=== PATIENT | male | born 1945 | race Caucasian/White ===

== ENCOUNTER 2016-10-08 13:19 | Inpatient (IN) | payer MEDICARE, OTHER ==
[~2016-10-08] VITALS: Ht 182.9 cm; Wt 115.2 kg
[2016-10-08 13:33] VITALS: BP 131/85; PULSE 75; TEMP 98
[2016-10-08] MEDS ORDERED: GLUCOPHAGE1000 MG PO (13:55)
[2016-10-08] MEDS ORDERED: DIFLUCAN200 MG PO (13:57)
[2016-10-08] MEDS ORDERED: GLUCOTROL 5M5 MG/TAB PO (13:57)
[2016-10-08 15:16] LABS: BASO % 0.2 % (0.0-2.0); EOS % 0.2 % (0-4.0); GRAN # 3.2 (1.4-6.5); GRAN % 68.2 % (42.2-75.2); HEMATOCRIT 40.6 % (42.0-52.0); HEMOGLOBIN 13.7 g/dl (13.5-18.0); LYMPH # 1.1 (1.2-3.4); LYMPH % 23.7 % (20.0-51.0); MEAN CELL VOLUME 84 fl (80.0-100.0); MEAN CORPUSCULAR HEMOGLOBIN 28 pg (27.0-31.0); MEAN CORPUSCULAR HGB CONC 34 g/dl (33.0-37.0); MEAN PLATELET VOLUME 9.4 fl (7.4-10.4); MONO # 0.3 (0.1-0.6); MONO % 7.1 % (1.7-9.3); PLATELET COUNT 119 K/mm3 (130-400); RED BLOOD COUNT 4.83 M/mm3 (4.20-5.60); REDCELL DISTRIBUTION WIDTH-CV 14.6 % (11.5-14.5); WHITE BLOOD COUNT 4.7 K/mm3 (4.8-10.8)
[2016-10-08 15:19] LABS: INR 1.2 (0.8-3.0); PROTHROMBIN TIME 12.8 SECONDS (9.7-12.8)
[2016-10-08 15:20] LABS: ADJUSTED CALCIUM 9.8 mg/dL (8.4-10.2); ALBUMIN 3.3 gm/dL (3.5-5.0); BILIRUBIN,TOTAL 1.3 mg/dL (0.0-1.0); CALCIUM 9.2 mg/dL (8.4-10.2); CREATININE, serum 0.73 mg/dL (0.66-1.25); MAGNESIUM 1.9 mg/dL (1.6-2.3); PHOSPHOROUS 3.6 mg/dL (2.5-4.5); POTASSIUM 4.7 mmol/L (3.4-5.0); TOTAL PROTEIN 6.4 gm/dL (6.4-8.2)
[2016-10-08 18:06] VITALS: BP 118/65; PULSE 61; TEMP 97.8
[2016-10-08 22:54] VITALS: BP 106/54; PULSE 118; TEMP 98.3
[2016-10-09 02:35] VITALS: BP 118/70; PULSE 84; TEMP 98
[2016-10-09 06:38] VITALS: BP 115/61; PULSE 56; TEMP 98.1
[2016-10-09 09:30] VITALS: BP 115/52; PULSE 62; TEMP 98.3
[2016-10-09 16:09] VITALS: BP 106/49; PULSE 61; TEMP 99.1
[2016-10-09 20:27] VITALS: BP 108/55; PULSE 62; TEMP 98.3
[2016-10-10 05:51] VITALS: BP 111/61; PULSE 64; TEMP 97.8
[2016-10-10 10:00] VITALS: BP 104/62; PULSE 68; TEMP 98.1
[2016-10-10 15:17] VITALS: BP 114/61; PULSE 69; TEMP 97.4
[2016-10-10 18:19] VITALS: BP 111/62; PULSE 63; TEMP 98
[2016-10-10 22:49] VITALS: BP 126/60; PULSE 60; TEMP 98.4
[2016-10-11 06:51] VITALS: BP 100/55; PULSE 73; TEMP 98.5
[2016-10-11 09:28] VITALS: BP 112/67; PULSE 57; TEMP 97.4
[2016-10-11 13:38] VITALS: BP 111/59; PULSE 63; TEMP 97.8
[2016-10-11 17:55] VITALS: BP 123/75; PULSE 62; TEMP 98.5
[2016-10-11 22:28] VITALS: BP 107/50; PULSE 61; TEMP 98.5
[2016-10-12 02:05] VITALS: BP 110/58; PULSE 70
[2016-10-12 04:49] VITALS: BP 117/63; PULSE 61; TEMP 98.1
[2016-10-12 10:07] VITALS: BP 114/65; PULSE 65; TEMP 98.6
[2016-10-12 22:12] VITALS: BP 110/65; PULSE 74; TEMP 98.5
[2016-10-13 01:49] VITALS: BP 109/48; PULSE 62; TEMP 98.2
[2016-10-13 05:48] VITALS: BP 121/64; PULSE 74; TEMP 98.5
[2016-10-13 07:48] VITALS: BP 125/63; PULSE 50; TEMP 97.1
[2016-10-13 13:37] VITALS: BP 104/57; PULSE 55; TEMP 97.8
[2016-10-13 17:45] VITALS: BP 92/64; PULSE 53; TEMP 98
[2016-10-13 17:57] VITALS: BP 92/64; PULSE 50; TEMP 98
[2016-10-13 22:12] LABS: CARCINOEMBRYONIC ANTIGEN 0.9 ng/mL (0.0-5.0)
[2017-01-20] MEDS ORDERED: NEURONTIN600 MG/TAB PO (11:09)
[2017-01-20] MEDS ORDERED: FUSILEV50 MG IV (11:11)
[2017-01-20] MEDS ORDERED: [UNRECOGNIZED DRUG - OTHER] PO (11:12)
[2017-01-20] MEDS ORDERED: OXALIPLATIN IV (11:12)
[2017-01-20] MEDS ORDERED: FLUOROURACIL ×2 (11:13→11:14)
[2017-03-10] MEDS ORDERED: DIFLUCAN 100MG100 MG PO (12:52)
[2017-03-10] MEDS ORDERED: IMODIUM 2MG CAPS2 MG PO (12:53)
[2017-03-10] MEDS ORDERED: ZOFRAN8 MG PO (12:54)
[2017-03-10] MEDS ORDERED: NEXIUM 40MG40 MG PO (12:55)
[2017-03-10] MEDS ORDERED: PROTONIX 40MG T40 MG PO (12:56)
[2017-03-10] MEDS ORDERED: NORCO 325 MG-51 TAB PO (12:58)
[2017-03-10] MEDS ORDERED: FUSILEV50 MG IV (13:00)
[2017-03-10] MEDS ORDERED: AVASTIN 100M25 MG/ML (13:03)
[2017-03-10] MEDS ORDERED: ADRUCIL50 MG/ML (13:03)
[2017-03-10] MEDS ORDERED: EMEND 150M150 MG/VIA IV (13:14)
[2017-03-10] MEDS ORDERED: ALOXII IV (13:15)
[2017-03-10] MEDS ORDERED: DECADRON INJ4 MG/ML (13:16)
[2017-03-10] MEDS ORDERED: DIPHENHYDRAM50 MG/M1 IV (13:17)
== END 2016-10-13 20:45 | disposition home or self-care (01) | DRG 375 ==
LOC: JCC 13:19
PROVIDERS: Internal Medicine; Surgery
PROC: 0W9G3ZX Drainage of Peritoneal Cavity, Percutaneous Approach, Diagnostic (ICD-10-PCS; 2016-10-08)
PROC: 0DBV4ZX Excision of Mesentery, Percutaneous Endoscopic Approach, Diagnostic (ICD-10-PCS; 2016-10-12)
PROC: 0DBS4ZX (ICD-10-PCS; principal; 2016-10-12 13:45)
PROC: 0JH60XZ Insertion of Tunneled Vascular Access Device into Chest Subcutaneous Tissue and Fascia, Open Approach (ICD-10-PCS; 2016-10-13)
PROC: 02HV33Z Insertion of Infusion Device into Superior Vena Cava, Percutaneous Approach (ICD-10-PCS; 2016-10-13)
PROC: B5181ZA Fluoroscopy of Superior Vena Cava using Low Osmolar Contrast, Guidance (ICD-10-PCS; 2016-10-13)
DX: C78.6 Secondary malignant neoplasm of retroperitoneum and peritoneum (principal); R18.0 Malignant ascites; E11.9 Type 2 diabetes mellitus without complications; Z87.891 Personal history of nicotine dependence
CPT/HCPCS: C1788; J0690; J1100; J1644; J1650; J1815; J2250; J2405; J2704; J3010; J7030; J7120; Q9967

== ENCOUNTER → 2017-01-20 | Outpatient (CLI) | payer MEDICARE, OTHER ==
[~2017-01-20] VITALS: Ht 182.9 cm; Wt 113.6 kg
[~2017-01-20] MED LIST: ADRUCIL50 MG/ML; ALOXII IV; AVASTIN 100M25 MG/ML; DECADRON INJ4 MG/ML; DIFLUCAN 100MG100 MG PO; DIFLUCAN200 MG PO; DIPHENHYDRAM50 MG/M1 IV; EMEND 150M150 MG/VIA IV; FLUOROURACIL; FUSILEV50 MG IV; GLUCOPHAGE1000 MG PO; GLUCOTROL 5M5 MG/TAB PO; IMODIUM 2MG CAPS2 MG PO; NEURONTIN600 MG/TAB PO; NEXIUM 40MG40 MG PO; NORCO 325 MG-51 TAB PO; OXALIPLATIN IV; PROTONIX 40MG T40 MG PO; ZOFRAN8 MG PO; [UNRECOGNIZED DRUG - OTHER] PO
[2017-01-20 11:15] VITALS: BP 139/70; PULSE 71
[2017-01-20 12:34] VITALS: BP 119/78; PULSE 62
== END ==
LOC: COL.RAD 10:55
DX: R18.8 Other ascites (principal); C18.2 Malignant neoplasm of ascending colon
CPT/HCPCS: 19804

== ENCOUNTER → 2017-02-21 | Outpatient (CLI) | payer MEDICARE, OTHER ==
[~2017-02-21] VITALS: Ht 182.9 cm; Wt 115.7 kg
[2017-02-21 09:53] VITALS: BP 141/71; PULSE 90
[2017-02-21 11:13] VITALS: BP 131/66; PULSE 72
== END ==
LOC: COL.RAD 09:24
DX: R18.8 Other ascites (principal); C18.2 Malignant neoplasm of ascending colon
CPT/HCPCS: 19804

== ENCOUNTER → 2017-03-10 | Outpatient (CLI) | payer MEDICARE, OTHER ==
[~2017-03-10] VITALS: Ht 182.9 cm; Wt 115.3 kg
[2017-03-10 13:08] VITALS: BP 101/63; PULSE 66
[2017-03-10 14:35] VITALS: BP 123/84; PULSE 57
== END ==
LOC: COL.RAD 12:30
DX: R18.8 Other ascites (principal); C18.2 Malignant neoplasm of ascending colon; J44.9 Chronic obstructive pulmonary disease, unspecified; E11.40 Type 2 diabetes mellitus with diabetic neuropathy, unspecified; Z79.84 Long term (current) use of oral hypoglycemic drugs; Z79.899 Other long term (current) drug therapy
CPT/HCPCS: 19804

== ENCOUNTER → 2017-03-29 | Outpatient (CLI) | payer MEDICARE, OTHER ==
[~2017-03-29] VITALS: Ht 182.9 cm; Wt 118.0 kg
[2017-03-29 13:01] VITALS: BP 127/86; PULSE 80
[2017-03-29 14:15] VITALS: BP 144/91; PULSE 74
== END ==
LOC: COL.RAD 12:40
DX: R18.8 Other ascites (principal); C18.9 Malignant neoplasm of colon, unspecified
CPT/HCPCS: 19804

== ENCOUNTER → 2017-04-12 | Outpatient (CLI) | payer MEDICARE, OTHER ==
[~2017-04-12] VITALS: Ht 182.9 cm; Wt 113.6 kg
[2017-04-12 12:39] VITALS: BP 126/73; PULSE 68
[2017-04-12 13:55] VITALS: BP 132/71; PULSE 65
== END ==
LOC: COL.RAD 12:00
DX: C18.9 Malignant neoplasm of colon, unspecified (principal); R18.8 Other ascites
CPT/HCPCS: 19804

== ENCOUNTER → 2017-04-26 | Outpatient (CLI) | payer MEDICARE, OTHER ==
[~2017-04-26] VITALS: Ht 182.9 cm; Wt 111.8 kg
[2017-04-26 11:47] VITALS: BP 104/79; PULSE 66
[2017-04-26 13:00] VITALS: BP 116/72; PULSE 60
== END ==
LOC: COL.RAD 11:05
DX: C18.9 Malignant neoplasm of colon, unspecified (principal); R18.8 Other ascites
CPT/HCPCS: 19804

== ENCOUNTER → 2017-05-10 | Outpatient (CLI) | payer MEDICARE, OTHER ==
[~2017-05-10] VITALS: Ht 182.9 cm; Wt 113.6 kg
[2017-05-10 11:50] VITALS: BP 105/71; PULSE 72
[2017-05-10 14:28] VITALS: BP 116/71; PULSE 60
== END ==
LOC: COL.RAD 11:02
DX: C18.2 Malignant neoplasm of ascending colon (principal); R18.8 Other ascites
CPT/HCPCS: C1729

== ENCOUNTER → 2017-07-13 | Outpatient (CLI) | payer MEDICARE | LOC: COL.RAD 10:40 | DX: C18.9 Malignant neoplasm of colon, unspecified (principal); I25.10 Atherosclerotic heart disease of native coronary artery without angina pectoris; R16.1 Splenomegaly, not elsewhere classified; N20.1 Calculus of ureter; K66.8 Other specified disorders of peritoneum; K82.8 Other specified diseases of gallbladder; E11.9 Type 2 diabetes mellitus without complications | CPT/HCPCS: Q9967 ==